=== PATIENT | female | born 1980 | race African-American/Black ===

== ENCOUNTER 2021-12-07 01:03 | Emergency (ER) | payer MEDICAID ==
[~2021-12-07] VITALS: Ht 170.2 cm; Wt 50.8 kg
[2021-12-07] MEDS ORDERED: TETANUS, DIPHTHERIA, PERTUSSIS VAC/PF 0.5ML (>10YR OLD) IM ONE (01:30)
[2021-12-07] MEDS ORDERED: BACITRACIN ZINC OINT UDPKT TOP ONE (01:30)
[2021-12-07 01:58] LABS: EOSINOPHILS % 1.1 % (0.0-5.0); HEMATOCRIT. 38.5 % (36.0-48.0); HEMOGLOBIN. 13.4 g/dL (12.0-16.0); MEAN CORPUSCULAR HEMOGLOBIN 34.4 pg (28.0-32.0); MEAN CORPUSCULAR VOLUME 99.1 fL (81.0-99.0); MEAN PLATELET VOLUME 6.9 fl (7.4-10.4); MONOCYTES % 5.8 % (2.0-8.0); NEUTROPHILS % 63.1 % (40.0-76.0); PLATELET 425 x1000/uL (130-400); RED BLOOD CELL COUNT 3.88 mill/uL (4.2-5.4); RED CELL DISTRIBUTION WIDTH 13.5 % (11.6-14.6)
[2021-12-07 02:10] LABS: HCG SCREEN NEGATIVE
[2021-12-07] MEDS ORDERED: PROPRANOLOL HCL 1MG/ML AMPULE IV ONE (03:30)
[2021-12-07] MEDS ORDERED: PROPOFOL 200MG/20ML VIAL IV PRN ×2 (04:00→04:45)
[2021-12-07] MEDS ORDERED: PROPOFOL 200MG/20ML VIAL IV NR (04:00)
[2021-12-07] MEDS ORDERED: MORPHINE SULFATE 4 MG/ML CPJ (NOT FOR IM USE) IV ONE (04:45)
[2021-12-07] MEDS ORDERED: ONDANSETRON HCL 4MG/2ML INJ IV ONE (04:45)
[2021-12-07] MEDS ORDERED: HYDR-4001 MT (05:51)
[2021-12-07] MEDS ORDERED: NALO4SPR BOTHNSTRLS (05:52)
[2021-12-07 06:25] VITALS: BP 102/52
== END 2021-12-07 06:26 | disposition home or self-care (01) ==
LOC: ER 01:03
DX: S53.195A Other dislocation of left ulnohumeral joint, initial encounter (principal); S52.122A Displaced fracture of head of left radius, initial encounter for closed fracture; Y08.89XA Assault by other specified means, initial encounter; Y93.89 Activity, other specified; Y92.89 Other specified places as the place of occurrence of the external cause; Y99.8 Other external cause status
CPT/HCPCS: 24600; 36415; 70450; 70486; 72125; 73060; 73090; 84703; 85025; 90471; 90715; 96374; 96375; 99152; 99285; J2270; J2405; J2704; J1800